=== PATIENT | male | born 1975 | race Caucasian/White ===

== ENCOUNTER 2016-12-05 11:25 | Emergency (ER) | payer OTHER ==
[~2016-12-05] VITALS: Ht 182.9 cm; Wt 115.0 kg
[2016-12-05 11:29] VITALS: TEMP 36.5; Ht 182.9 cm; Wt 115.0 kg
[2016-12-05] MEDS ORDERED: MTR800 PO (11:42)
[2016-12-05] MEDS ORDERED: GABA-113 PO (11:42)
[2016-12-05] MEDS ORDERED: MoRPHine SULFATE 10 MG/ML CARP/VIAL IV STA (11:51)
[2016-12-05] MEDS ORDERED: ONDANSETRON INJ 2 MG/ML 2 ML VIAL IV STA (11:51)
[2016-12-05] MEDS ORDERED: KETOROLAC TROMETHAMINE 30 MG/ML VIAL IV STA (11:51)
[2016-12-05] MEDS ORDERED: DEXAMETHASONE SOD INJ 10 MG/ML VIAL IV ONE (12:00)
[2016-12-05] MEDS ORDERED: MoRPHine SULFATE 4 MG/ML 1 ML CARP\\VIAL IV STA (13:30)
--- NOTE | 2016-12-05 13:33 | EMERGENCY ROOM VISIT NOTE ---
ED Visit Note First contact with patient: 11:40 CHIEF COMPLAINT: Low back pain with right sciatica HISTORY OF PRESENT ILLNESS: This 41-year-old male presents the ER with chief complaint of worsening low back pain and right sciatica since last evening. The patient states that he just bent over and felt a sharp stabbing pain in his right lower back with pain radiating down to his right foot. The patient also has some numbness in his right leg today. The patient has been under the treatment for low back pain and right sciatica since July. He was treated with steroids in September and October. He had an x-ray done 11/03/2016 which revealed mild degenerative changes. He started doing physical therapy the first week of November. He states that he had to go through some any weeks of physical therapy before his insurance would improve an MRI. The patient was at his family physician today and they sent him to the emergency room due to the pain. The patient has been taking ibuprofen and gabapentin for pain. He states the pain is worse with sitting, and standing still. The patient denies any urinary symptoms of frequency, urgency, dysuria. The patient denies any loss of bowel or bladder control or saddle anesthesia. REVIEW OF SYSTEMS: 6 system review was performed and was negative unless stated otherwise in history of present illness. PMH: The patient is healthy; hypertension SOCIAL HISTORY: Patient lives with his and children. The patient denies any tobacco use but admits to occasional alcohol use PHYSICAL EXAM: Vital Signs normal: Reviewed Nurse's notes and agree. GENERAL: 41-year-old white male appears uncomfortable secondary to back pain. MENTAL STATUS: Alert and oriented 3 LUMBAR SPINE: No gross bony abnormality noted. Patient is nontender to palpation over the spinous processes. He is tender to palpation over the right paravertebral region, left side nontender. He has limited range of motion in all directions secondary to pain. NEURO: Patient is able to heel and toe walk with some difficulty. bilateral patellar and Achilles reflexes are 2+. Sensation is intact to pinprick bilateral lower extremities. Positive straight leg raise on the right. EMERGENCY DEPARTMENT COURSE: The patient was evaluated. IV access was obtained. The patient was given Toradol 30 mg IV, Decadron 10 mg IV, morphine 8 mg IV and Zofran 4 mg IV. The patient was reevaluated and was feeling better but still had significant pain in the right lower back and right upper thigh. He was given additional 4 mg of morphine IV. The patient was reevaluated was feeling better. The patient was discharged home in stable condition with his driving. DIAGNOSIS: Low back pain with right radiculopathy DISCHARGE INSTRUCTIONS AND TREATMENT: Take Medrol dosepak as prescribed. Ibuprofen 600 mg every 6 hours with food for pain. Take OxyIR as needed for more severe pain. Do not drive while taking the OxyIR. Continue gabapentin.. Avoid staying in any one position for an extended period of time. Follow-up with your family physician in 2 days for recheck and possible referral for MRI and appointment with spine surgeon. Off work for 2 days. Current/Historical Medications Scheduled Gabapentin (Neurontin), 300 MG PO TID Ibuprofen (Ibuprofen), 800 MG PO TID Allergies Coded Allergies: No Known Allergies (Unverified , 12/05/16) Vital Signs Date Time Temp Pulse Resp B/P Pulse Ox O2 Delivery O2 Flow Rate FiO2 12/05/16 11:29 36.5 92 18 187/121 96 Room Air Medications Administered Medications (Trade) Dose Ordered Sig/Mitch Route Start Time Stop Time Status Last Admin Dose Admin Ketorolac Tromethamine (Toradol Inj) 30 mg NOW STAT IV 12/05/16 11:51 12/05/16 11:53 DC 12/05/16 12:29 30 MG Dexamethasone Sodium Phosphate (Decadron Inj) 10 mg NOW ONCE IV 12/05/16 12:00 12/05/16 12:01 DC 12/05/16 12:28 10 MG Ondansetron HCl (Zofran Inj) 4 mg NOW STAT IV 12/05/16 11:51 12/05/16 11:53 DC 12/05/16 12:29 4 MG Morphine Sulfate (MoRPHine SULFATE INJ) 8 mg NOW STAT IV 12/05/16 11:51 12/05/16 11:53 DC 12/05/16 12:28 8 MG Departure Information Referrals Scarlett Piña MD (PCP) Patient Instructions [facility]
[2016-12-05] MEDS ORDERED: OXYC1TAB3 PO (13:38)
[2016-12-05] MEDS ORDERED: METH4PAK PO (13:38)
[2016-12-05 14:00] VITALS: BP 158/96; PULSE 100; O2SAT 96
[2017-01-09] MEDS ORDERED: DAYQLIQ PO (08:13)
[2017-01-09] MEDS ORDERED: OXYM0.056 NAE (08:13)
[2017-02-09] MEDS ORDERED: RXC5 PO (12:09)
== END 2016-12-05 14:01 | disposition home or self-care (01) ==
LOC: C.EDB 11:26 → C.EDC 14:01
DX: M54.16 Radiculopathy, lumbar region (principal); I10 Essential (primary) hypertension

== ENCOUNTER → 2016-12-06 | Outpatient (CLI) | payer OTHER ==
[~2016-12-06] MED LIST: DAYQLIQ PO; GABA-113 PO; METH4PAK PO; MTR800 PO; OXYC1TAB3 PO; OXYM0.056 NAE; RXC5 PO
--- NOTE | 2016-12-06 12:33 | DIAGNOSTIC IMAGING REPORT ---
MRI LUMBAR SPINE W/O CONTRAST CLINICAL HISTORY: Low back pain with right leg radiculopathy. TECHNIQUE: Sagittal and axial T1, T2 and STIR images were obtained. COMPARISON STUDY: No previous studies for comparison. 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 L1-2: No disc protrusions or extrusions. No evidence of spinal canal or neural foraminal compromise. L2-3: No disc protrusions or extrusions. No evidence of spinal canal or neural foraminal compromise. L3-4: No disc protrusions or extrusions. No evidence of spinal canal or neural foraminal compromise. L4-5: No disc protrusions or extrusions. No evidence of spinal canal or neural foraminal compromise. L5-S1: There is a moderate right posterior central disc protrusion with an associated 18 mm free disc fragment. This results in significant deformity of the thecal sac and probable impingement of the right S1 nerve root. The conus medullaris and cauda equina appear normal. IMPRESSION: L5-S1 right posterior central disc protrusion with associated 18 mm free disc fragment. This results in significant deformity of the thecal sac and probable impingement of the right S1 nerve root Electronically signed by: Bashir Maddox M.D. 12/06/2016 12:31 PM Dictated Date/Time: 12/06/2016 12:25 PM
== END | disposition home or self-care (01) ==
LOC: C.MRI 10:40
PROVIDERS: ATTEND Family Medicine
DX: M51.17 Intervertebral disc disorders with radiculopathy, lumbosacral region (principal)

== ENCOUNTER → 2016-12-22 | Outpatient (CLI) | payer OTHER ==
[~2016-12-22] MED LIST changes: -METH4PAK PO
[2016-12-22 11:18] LABS: CHOLESTEROL/HDL RATIO 3.8
== END | disposition home or self-care (01) ==
LOC: C.LABBC 08:48
PROVIDERS: ATTEND Family Medicine
DX: Z13.220 Encounter for screening for lipoid disorders (principal); Z13.1 Encounter for screening for diabetes mellitus

== ENCOUNTER 2017-02-09 05:55 | Inpatient (IN) | payer OTHER ==
[2017-01-09 08:14] VITALS: BMI 36.0
--- NOTE | 2017-01-09 08:43 | PAT Medication Instructions ---
Service Date Jan 09, 2017. Current Home Medication List Gabapentin (Neurontin), 600 MG PO TID Oxymetazoline Hcl (Afrin), 2 SPRAYS JOHN QAM [Dayquil], 1 DOSE PO PRN Medication Instructions For Your Scheduled Surgery - Hold the following medications the morning of surgery: [Dayquil], 1 DOSE PO PRN Oxymetazoline Hcl (Afrin), 2 SPRAYS JOHN QAM - Take the following medications the morning of surgery with a sip of water: Gabapentin (Neurontin), 600 MG PO TID - Take the following medications as scheduled the night before surgery: [Dayquil], 1 DOSE PO PRN Gabapentin (Neurontin), 600 MG PO TID If you have any questions please call us at [phone] (Kristie Rios PA-C) or [phone] or [phone]
--- NOTE | 2017-01-09 09:20 | DIAGNOSTIC IMAGING REPORT ---
CHEST PREADMISSION(PA/LAT) CLINICAL HISTORY: Preoperative evaluation. COMPARISON STUDY: No previous studies for comparison. FINDINGS: Lung volumes are normal. Lungs are clear. There is no pneumothorax or pleural effusion. Cardiac size is within normal limits. There is no evidence of pulmonary edema. IMPRESSION: No acute cardiopulmonary findings. Electronically signed by: Alfredo Marion M.D. 01/09/2017 9:19 AM Dictated Date/Time: 01/09/2017 9:18 AM
[2017-01-09 09:39] LABS: BASO % 0.3 %; BASO ABS # 0.02 K/uL (0-0.2); COMPLETE YES; EOS % 2.9 %; IG% 0.3 %; LYMPH % 33.6 %; LYMPH ABS # 2.06 K/uL (1.2-3.4); MEAN CELL VOLUME 87.3 fL (80-100); MEAN CORPUSCULAR HEMOGLOBIN 30.7 pg (25-34); MEAN CORPUSCULAR HGB CONC 35.2 g/dl (32-36); MEAN PLATELET VOLUME 10.1 fL (7.4-10.4); MONO % 12.5 %; NEUT % 50.4 %; PLATELET COUNT 214 K/uL (130-400); RED BLOOD COUNT 5.27 M/uL (4.7-6.1); WHITE BLOOD COUNT 6.14 K/uL (4.8-10.8)
[2017-01-09 09:53] LABS: URINE APPEARANCE CLEAR (CLEAR); URINE BILIRUBIN NEG (NEG); URINE COLOR YELLOW; URINE NITRITE NEG (NEG); URINE SPECIFIC GRAVITY 1.017 (1.000-1.030); UROBILINOGEN NEG (NEG)
[2017-01-09 09:57] LABS: BUN/CREATININE RATIO 16.6 (10-20); CALCIUM 9.3 mg/dl (8.5-10.1); CREATININE 0.93 mg/dl (0.60-1.40); POTASSIUM 4.1 mmol/L (3.5-5.1)
[2017-01-09 10:00] LABS: MANUAL MICROSCOPIC REQUIRED? NO; REVIEW REQ? NO
[2017-02-09] VITALS (11 sets, daily range): BP systolic 123–152; BP diastolic 66–100; PULSE 77–115; TEMP 36.4–37; O2SAT 93–100; Ht 182.9 cm; Wt 120.9 kg
[~2017-02-09] VITALS: Ht 182.9 cm; Wt 120.9 kg
[~2017-02-09 05:55] MED LIST changes: -MTR800 PO; -OXYC1TAB3 PO; -RXC5 PO
[2017-02-09] MEDS ORDERED: LACTATED RINGER'S 1000ML 1,000 ML IV SCH (06:00)
[2017-02-09] MEDS ORDERED: CEFAZOLIN 3000 MG/65 ML D5W 65 ML IV SCH (06:00)
[2017-02-09] MEDS ORDERED: FENTANYL CITRATE INJ 50 MCG/1 ML 2 ML VIAL ONE ×5 (06:51→09:52)
[2017-02-09] MEDS ORDERED: MIDAZOLAM HCL 1 MG/ML 2ML VIAL ONE (06:51)
[2017-02-09] MEDS ORDERED: BACITRACIN 50000 UNIT VIAL ONE (07:08)
[2017-02-09] MEDS ORDERED: BUPIVACAINE/EPINEPHRINE 0.5% MPF 1:200,000 30 ML VIAL ONE (07:08)
[2017-02-09] MEDS ORDERED: SODIUM CHLORIDE 0.9% PF 50 ML VIAL ONE (07:08)
--- NOTE | 2017-02-09 07:18 | History & Physical Bridge Note ---
H&P Re-Evaluation Bridge Note: I have examined the patient, reviewed the History & Physical and in the interval since the performance of the History & Physical I have noted the following changes of clinical significance: No changes noted
--- NOTE | 2017-02-09 07:19 | History and Physical ---
History & Physical Date Feb 09, 2017. Chief Complaint back and leg pain History of Present Illness The patient is a 41 year old male with complaints of Additional History Hepatic Disease: No Endocrine Disorder: No Kidney Disease: No Hypertension: No Heart Disease: No Bleeding Tendencies: No Infectious Diseases: No Allergies Coded Allergies: No Known Allergies (Unverified , 02/09/17) Home Medications Scheduled Gabapentin (Neurontin), 600 MG PO TID Oxymetazoline Hcl (Afrin), 2 SPRAYS JOHN QAM [Dayquil], 1 DOSE PO PRN Physical Examination Skin: warm/dry, no rash Eyes: normal inspection, EOMI, sclerae normal ENT: normal ENT inspection, pharynx normal Head: normocephalic, atraumatic Neck: supple, no adenopathy, trachea midline Respiratory/Chest: lungs clear, normal breath sounds, no respiratory distress Cardiovascular: regular rate, rhythm, no edema, no murmur Abdomen / GI: normal bowel sounds, non tender Back: normal inspection Extremities: normal inspection, normal range of motion Neurologic/Psych: no motor/sensory deficits, alert, normal reflexes, oriented x 3 Diagnosis lumbar stenosis Plan of Treatment decompression fusion L5-S1
[2017-02-09] MEDS ORDERED: HYDROmorphone INJ 2 MG/ML SYR/VIAL ONE ×2 (08:13→09:27)
[2017-02-09] MEDS ORDERED: ONDANSETRON INJ 2 MG/ML 2 ML VIAL IV PRN ×2 (08:30→09:30)
[2017-02-09] MEDS ORDERED: EpHEDrine SULFATE INJ 50 MG/ML AMP IV PRN (08:30)
[2017-02-09] MEDS ORDERED: ATROPINE SULFATE 0.1 MG/ML 5ML SYR IV PRN (08:30)
[2017-02-09] MEDS ORDERED: MoRPHine SULFATE 10 MG/ML CARP/VIAL IV PRN (08:30)
[2017-02-09] MEDS ORDERED: METOPROLOL TARTRATE 1 MG/ML VIAL ONE (08:49)
[2017-02-09] MEDS ORDERED: ROCURONIUM BROMIDE 10 MG/ML 5 ML VIAL ONE (08:49)
[2017-02-09] MEDS ORDERED: ONDANSETRON INJ 2 MG/ML 2 ML VIAL ONE ×2 (08:49→09:29)
[2017-02-09] MEDS ORDERED: LIDOCAINE HCL 2% 2 ML VIAL (20MG/ML) ONE (08:49)
[2017-02-09] MEDS ORDERED: PROPOFOL IV EMULSION 10 MG/ML 20 ML VIAL IV ONE (08:49)
[2017-02-09] MEDS ORDERED: ESMOLOL HCL 10 MG/ML 10 ML VIAL ONE (08:49)
[2017-02-09] MEDS ORDERED: DEXAMETHASONE SOD INJ 4 MG/ML VIAL ONE (08:49)
[2017-02-09] MEDS ORDERED: FLOSEAL HEMOSTATIC MATRIX 10ML TOP ONE (09:16)
[2017-02-09] MEDS ORDERED: SODIUM CHLORIDE 0.9% 1000ML 1,000 ML IV SCH (09:19)
--- NOTE | 2017-02-09 09:19 | [facility] Post Operative Brief Note ---
Immediate Operative Summary Operative Date Feb 09, 2017. Pre-Operative Diagnosis Lumbar Stenosis Post-Operative Diagnosis Lumbar Stenosis Procedure(s) Performed L5-S1 Lumbar Decompression, Posterior Instrumented Fusion, Interbody Fusion with Application of Interbody Cage, Use of Fibrinet Surgeon Bach Drug And Alcohol Counsellor Surgeon(s) Porfirio Sweeney PA-C Estimated Blood Loss 250 Findings hnp/stenosis Specimens None per surgeon
[2017-02-09] MEDS ORDERED: NEOSTIGMINE METHYLSULFATE 1 MG/ML 10ML VIAL ONE (09:29)
[2017-02-09] MEDS ORDERED: GLYCOPYRROLATE INJ 0.2 MG/ML VIAL ONE (09:29)
[2017-02-09] MEDS ORDERED: PHENYLEPHRINE 100MCG/ML 5ML SYR ONE (09:29)
[2017-02-09] MEDS ORDERED: KETOROLAC TROMETHAMINE 30 MG/ML VIAL ONE (09:29)
--- NOTE | 2017-02-09 09:29 | DIAGNOSTIC IMAGING REPORT ---
LUMBAR SPINE 2 OR 3 VIEW CLINICAL HISTORY: L5-S1 Decompression/Fusion COMPARISON STUDY: MRI of the lumbar spine December 06, 2016. Fluoroscopy time: 22 seconds. FINDINGS: 2 fluoroscopic images demonstrate an L5-S1 discectomy with interbody spacer placement. There is a posterior decompression with bilateral pedicle screws at the L5 and S1 levels. IMPRESSION: Fluoroscopic images demonstrating an L5-S1 discectomy and bilateral pedicle screw fusion. Electronically signed by: Alfredo Marion M.D. 02/09/2017 9:27 AM Dictated Date/Time: 02/09/2017 9:21 AM
[2017-02-09] MEDS ORDERED: ACETAMINOPHEN IV 100 ML IV PRN (09:30)
[2017-02-09] MEDS ORDERED: PROMETHAZINE HCL INJ 12.5 MG in SODIUM CHLORIDE 0.9% 50ML 50 ML IV PRN (09:30)
[2017-02-09] MEDS ORDERED: BISACODYL 10 MG SUPP PR PRN (09:30)
[2017-02-09] MEDS ORDERED: DO NOT ADMINISTER FLU VACCINE PRN ×3 (09:30)
[2017-02-09] MEDS ORDERED: FAMOTIDINE 20 MG TAB PO PRN (09:30)
[2017-02-09] MEDS ORDERED: hydrOXYzine HCL 25 MG TAB PO PRN (09:30)
[2017-02-09] MEDS ORDERED: DO NOT ADMINISTER PNEUMOCOCCAL VACCINE PRN ×2 (09:30)
[2017-02-09] MEDS ORDERED: LORAZEPAM INJ 0.5 MG in SYRINGE 0 ML IV PRN (09:30)
[2017-02-09] MEDS ORDERED: SOD PHOSPHATE/SOD BIPHOSPHATE ENEMA 132 ML BTL PR PRN (09:30)
[2017-02-09] MEDS ORDERED: METOCLOPRAMIDE HCL INJ 5 MG/ML 2 ML VIAL IV PRN (09:30)
[2017-02-09] MEDS ORDERED: LORAZEPAM 0.5 MG TAB PO PRN (09:30)
[2017-02-09] MEDS ORDERED: MAGNESIUM HYDROXIDE SUSP 30 ML UDC PO PRN (09:30)
[2017-02-09] MEDS ORDERED: ACETAMINOPHEN 500 MG TAB PO PRN (09:30)
[2017-02-09] MEDS ORDERED: ALUMINUM/MAGNESIUM SUSP 30 ML UDC PO PRN (09:30)
[2017-02-09] MEDS ORDERED: NALOXONE HCL 0.4 MG/1 ML VIAL/CARP IV PRN ×2 (09:30)
[2017-02-09] MEDS: FENTANYL CITRATE INJ 50 MCG/1 ML 2 ML VIAL IV PRN ×4 (09:50→10:05)
[2017-02-09] MEDS ORDERED: HYDROmorphone HCL 0.5MG/ML 50 ML CASSETTE ONE (09:57)
[2017-02-09] MEDS: HYDROmorphone HCL 0.5MG/ML 50 ML CASSETTE IV PRN ×3 (10:35→22:51)
--- NOTE | 2017-02-09 11:06 | OPERATIVE REPORT ---
DATE OF OPERATION: 02/09/2017 PREOPERATIVE DIAGNOSIS: Spinal stenosis, herniated nucleus pulposus. POSTOPERATIVE DIAGNOSIS: Same. PROCEDURES PERFORMED: 1. Lumbar decompression, medial facetectomy and foraminotomy L5-S1. 2. Posterior spinal fusion L5-S1. 3. Placement of posterior instrumentation using Orthros rods and screws, L5-S1. 4. Interbody fusion L5-S1. 5. Placement of PEEK cage 14 x 26 at L5-S1. 6. Placement of locally harvested morcellized autograft in posterior gutters. 7. Placement of FiberNet and OsteoStrux in the interbody space and posterior gutters. SURGEON: Dr. Godfrey Bach. PSYCHOLOGY LECTURER: Sean Sweeney PA-C. Due to the complex nature of the procedure, the entire surgery was performed with the operational assistance of ROXANNE Grande. The biology laboratory assistant, under direct supervision, was involved in the actual performance of all aspects of the surgical procedure including hemostasis, tissue retraction and incision, instrument management, patient positioning, and wound closure. ANESTHESIA: General. DISPOSITION: The patient awakened and taken to PACU in stable condition. HISTORY OF PATIENT'S PROBLEMS: This is a 41-year-old male that presents with above-mentioned diagnosis. After failing an extensive course of nonoperative care, elected to undergo the above-mentioned procedure. Risks, benefits, pros, cons, and alternatives were outlined in detail preoperatively. PROCEDURE IN DETAIL: The patient was met with preoperatively, the case discussed and all questions were addressed. At that point, the patient was taken back to operative suite and after undergoing successful general intubation by the department of anesthesia was placed in prone position on Roscoe table atop the Corwin frame. All bony prominences were well padded and the eyes were inspected to ensure there was no external pressure placed upon them. At this point, lumbar spine was prepped and draped in normal sterile fashion. Sharp dissection with the assistance of Bovie cautery performed down to and exposing the lamina and transverse processes of L5 and sacral ala bilaterally. From a caudal to cephalad fashion, complete laminectomy of L5 was performed, addressing severe lateral recess foraminal disease, particularly on the right. Pedicle screws were then placed in L5-S1 bilaterally with the assistance of fluoroscopy and appropriate sized lia provisionally placed. Through a transforaminal approach on the right, a complete discectomy of L5-S1 was performed, endplates curetted to subcortical bleeding bone and a 14 x 26 mm PEEK cage filled with FiberNet and OsteoStrux tapped into position. The rods were then compressed, locked into final position bilaterally. Transverse processes of L5 and the sacral ala were burred to subcortical bleeding bone. FiberNet, OsteoStrux and locally harvested morcellized autograft was placed in the posterior gutters. A 7 flat RUTH drain inserted. Incision was closed with 1-0 Vicryl in the fascia, 2-0 Vicryl subcutaneously, 4-0 Monocryl for final skin closure. Steri-Strips and sterile dressing placed. The patient was awakened and taken to PACU in stable condition. I attest to the content of the Intraoperative Record and any orders documented therein. Any exceptio ns are noted below.
[2017-02-09] MEDS: LACTATED RINGER'S 1000ML 1,000 ML IV SCH ×2 (11:26→17:54)
[2017-02-09] MEDS ORDERED: RXC5 PO (12:09)
--- NOTE | 2017-02-09 12:10 | Discharge Instructions ---
Discharge Instructions Date of Service Feb 09, 2017. Admission Reason for Admission: Lumbar Spinal Stenosis Discharge Discharge Diagnosis / Problem: lumbar stenosis Discharge Goals Goal(s): Improve function Activity Recommendations Activity Limitations: per Instructions/Follow-up section ACTIVITY RECOMMENDATIONS: SELF CARE INSTRUCTIONS AFTER THORACIC/LUMBAR FUSIONS 1. You may walk to your tolerance. It is good exercise for your legs and back. Expect some back and intermittent leg aches and pains. 2. You may perform "counter-top" level activities (make a sandwich, ruth with a project, etc.). 3. No bending or lifting of more than 10 pounds or back twisting of any nature (roll like a log when turning in bed). 4. You may ride in a car for 20-30 minutes at a time. No driving until after your first visit with your doctor. 5. Frequent changes of position and restricting sitting to 30 minutes at a time will help limit the amount of back spasms and stiffness you may experience. 6. You may discontinue the use of ambulatory aids (cane, crutches, etc.) once your strength and confidence allow. 7. You may metal inspector the shower and let water strike your incision when you arrive home at least once daily. Do not take a tub bath, sit in a hot tub or go into a swimming pool until after your first recheck in the office. SPECIAL CARE INSTRUCTIONS: VERY IMPORTANT TO READ AND REVIEW A. Your surgical incision has been closed with a cosmetic suture under the skin that will dissolve in about 6 weeks. In 14 days, you can use a pair of clean scissors and cut the suture that is left outside of the skin at the ends of your incision. 1. The small skin tapes can be removed 7 days after surgery if they have not fallen off by that point. 2. You may keep the wound open to air as much as possible to promote healing after post-op day number 5 unless told otherwise by your doctor. 3. If you think the wound looks like it is becoming infected (redness or worsening drainage) and/or you are experiencing fever, chill or worsening back pain and muscle spasms, contact the office so that we may evaluate you as soon as possible. B. Complications are uncommon, but please contact us if you have any signs or symptoms of: 1. wound infection (fever higher than 102.5 degrees F, redness, separation of wound, drainage, or increasing pain from the incision) 2. blood clots in legs (pain, swelling, redness and warmth in legs) 3. urinary tract infection (fever higher than 102.5 degrees F, burning upon urination or increased frequency of urination) 4. nerve problems (inability to walk on your toes or heels, numbness, loss of bowel or bladder control) 5. any other symptoms that concern you C. Please call the office at if you have any concerns or questions about your operation or recovery. D. No smoking! Smoking drastically decreases the chance of a solid fusion. E. Do not take any anti-inflammatory medications (Indocin, Advil, Motrin, Aspirin, Naprosyn, etc.) as these may inhibit the chance of a solid fusion. Tylenol is okay to take for pain. MANAGING PAIN AFTER SPINAL SURGERY 1. Narcotic medication is intended for short-term use and will be provided for surgical pain. Surgical pain usually lasts for a period of 4-6 weeks. Narcotic medication includes Percocet, Vicodin, Darvocet, Tylenol #3 or Lortab. 2. Longer-term pain is more appropriately treated with non-narcotic medication such as Tylenol ES. 3. Muscle spasm is not appropriately treated with narcotics. Muscle relaxers such as Soma, Flexeril or Skelaxin can be used along with Tylenol ES. 4. Remember that we all live with some "aches and pains". This is not unusual or uncommon after an injury or as we get older. a. Back pain is expected and may include muscle spasms for 4 to 6 weeks after surgery. The pain should gradually improve. If the pain worsens for no apparent reason, please contact the office. b. Intermittent leg pain may also be experienced and should not be concerned about unless it worsens for no apparent reason. If so, please contact the office. 5. We will provide appropriate medication within the normal guidelines of their prescribed use. We will also be very cautious and aware of potential abuse and extended duration of patients' medication needs. a. Pain medications are for your comfort and to assist with sleep and rest so that the tissue can heal. They are not provided in order to return to normal activity and should not be used through the day. To do so or worsening pain at night can result from ongoing tissue damage and development of tolerance to the prescribed medicine. 6. Please allow 2-3 days to process refills. Prescriptions will not be mailed but must be picked up at the office. FOLLOW UP VISIT: Keep your scheduled follow-up appointment. Any questions, please call the office at . . Instructions / Follow-Up Instructions / Follow-Up ACTIVITY RECOMMENDATIONS: SELF CARE INSTRUCTIONS AFTER THORACIC/LUMBAR FUSIONS 1. You may walk to your tolerance. It is good exercise for your legs and back. Expect some back and intermittent leg aches and pains. 2. You may perform "counter-top" level activities (make a sandwich, ruth with a project, etc.). 3. No bending or lifting of more than 10 pounds or back twisting of any nature (roll like a log when turning in bed). 4. You may ride in a car for 20-30 minutes at a time. No driving until after your first visit with your doctor. 5. Frequent changes of position and restricting sitting to 30 minutes at a time will help limit the amount of back spasms and stiffness you may experience. 6. You may discontinue the use of ambulatory aids (cane, crutches, etc.) once your strength and confidence allow. 7. You may metal inspector the shower and let water strike your incision when you arrive home at least once daily. Do not take a tub bath, sit in a hot tub or go into a swimming pool until after your first recheck in the office. SPECIAL CARE INSTRUCTIONS: VERY IMPORTANT TO READ AND REVIEW A. Your surgical incision has been closed with a cosmetic suture under the skin that will dissolve in about 6 weeks. In 14 days, you can use a pair of clean scissors and cut the suture that is left outside of the skin at the ends of your incision. 1. The small skin tapes can be removed 7 days after surgery if they have not fallen off by that point. 2. You may keep the wound open to air as much as possible to promote healing after post-op day number 5 unless told otherwise by your doctor. 3. If you think the wound looks like it is becoming infected (redness or worsening drainage) and/or you are experiencing fever, chill or worsening back pain and muscle spasms, contact the office so that we may evaluate you as soon as possible. B. Complications are uncommon, but please contact us if you have any signs or symptoms of: 1. wound infection (fever higher than 102.5 degrees F, redness, separation of wound, drainage, or increasing pain from the incision) 2. blood clots in legs (pain, swelling, redness and warmth in legs) 3. urinary tract infection (fever higher than 102.5 degrees F, burning upon urination or increased frequency of urination) 4. nerve problems (inability to walk on your toes or heels, numbness, loss of bowel or bladder control) 5. any other symptoms that concern you C. Please call the office at if you have any concerns or questions about your operation or recovery. D. No smoking! Smoking drastically decreases the chance of a solid fusion. E. Do not take any anti-inflammatory medications (Indocin, Advil, Motrin, Aspirin, Naprosyn, etc.) as these may inhibit the chance of a solid fusion. Tylenol is okay to take for pain. MANAGING PAIN AFTER SPINAL SURGERY 1. Narcotic medication is intended for short-term use and will be provided for surgical pain. Surgical pain usually lasts for a period of 4-6 weeks. Narcotic medication includes Percocet, Vicodin, Darvocet, Tylenol #3 or Lortab. 2. Longer-term pain is more appropriately treated with non-narcotic medication such as Tylenol ES. 3. Muscle spasm is not appropriately treated with narcotics. Muscle relaxers such as Soma, Flexeril or Skelaxin can be used along with Tylenol ES. 4. Remember that we all live with some "aches and pains". This is not unusual or uncommon after an injury or as we get older. a. Back pain is expected and may include muscle spasms for 4 to 6 weeks after surgery. The pain should gradually improve. If the pain worsens for no apparent reason, please contact the office. b. Intermittent leg pain may also be experienced and should not be concerned about unless it worsens for no apparent reason. If so, please contact the office. 5. We will provide appropriate medication within the normal guidelines of their prescribed use. We will also be very cautious and aware of potential abuse and extended duration of patients' medication needs. a. Pain medications are for your comfort and to assist with sleep and rest so that the tissue can heal. They are not provided in order to return to normal activity and should not be used through the day. To do so or worsening pain at night can result from ongoing tissue damage and development of tolerance to the prescribed medicine. 6. Please allow 2-3 days to process refills. Prescriptions will not be mailed but must be picked up at the office. FOLLOW UP VISIT: Keep your scheduled follow-up appointment. Any questions, please call the office at . Current Hospital Diet Patient's current hospital diet: Regular Diet Discharge Diet Recommended Diet: Regular Diet Procedures Procedures Performed: L5-S1 Lumbar Decompression, Posterior Instrumented Fusion, Interbody Fusion with Application of Interbody Cage, Use of Fibrinet Pending Studies Studies pending at discharge: no Laboratory Results Lipid Panel Test 12/22/16 09:09 Range/Units Triglycerides Level 125 0-150 mg/dl Cholesterol Level 215 H 0-200 mg/dl HDL Cholesterol 57 mg/dl Cholesterol/HDL Ratio 3.8 LDL Cholesterol, Calculated 133 mg/dl Medical Emergencies . Who to Call and When: Medical Emergencies: If at any time you feel your situation is an emergency, please call 911 immediately. . Non-Emergent Contact Non-Emergency issues call your: Primary Care Provider . "Provider Documentation" section prepared by Godfrey Bach. VTE Core Measure Inpt VTE Proph given/why not?: Elizabeth Peña, SCD's
[2017-02-09] MEDS ORDERED: NURSING DECISION MEDICATION ORDER SCH (12:15)
[2017-02-09] MEDS ORDERED: COUGH DROP (SUGAR FREE) LOZ 24 LOZ/1 BOX PO PRN (13:00)
[2017-02-09] MEDS: GABAPENTIN 600 MG TAB PO SCH ×2 (13:28→20:56)
--- NOTE | 2017-02-09 13:57 | Anesthesiology Progress Note ---
Anesthesia Post Op Note Date & Time Feb 09, 2017 at 13:56 Vital Signs Pain Intensity: 4.0 Vital Signs Past 12 Hours Date Time Temp Pulse Resp B/P Pulse Ox O2 Delivery O2 Flow Rate FiO2 02/09/17 13:38 36.5 93 17 128/76 93 Room Air 02/09/17 12:35 36.4 77 16 123/75 99 Nasal Cannula 4.0 02/09/17 11:35 37.0 93 18 127/66 99 Nasal Cannula 3.0 02/09/17 11:05 36.4 88 16 129/87 99 Nasal Cannula 4.0 02/09/17 10:35 36.8 77 16 130/76 100 Nasal Cannula 4.0 02/09/17 10:35 100 Nasal Cannula 4.0 02/09/17 10:35 100 Nasal Cannula 4.0 02/09/17 10:15 36.6 90 16 133/72 100 Nasal Cannula 4 02/09/17 10:10 90 14 138/75 100 Nasal Cannula 4 02/09/17 10:00 81 14 128/61 100 Mask 10 02/09/17 09:50 82 14 123/84 100 Mask 10 02/09/17 09:41 36.6 97 16 141/78 100 Mask 10 02/09/17 06:17 36.5 99 18 152/100 96 Room Air Notes Mental Status: alert / awake / arousable, participated in evaluation Pt Amnestic to Procedure: Yes Nausea / Vomiting: adequately controlled Pain: adequately controlled Airway Patency, RR, SpO2: stable & adequate BP & HR: stable & adequate Hydration State: stable & adequate Anesthetic Complications: no major complications apparent
[2017-02-09] MEDS: CEFAZOLIN IV 3,000 MG in DEXTROSE 5% 50ML 50 ML IV SCH (15:25)
[2017-02-09] MEDS: DEXAMETHASONE INJ 6 MG in SYRINGE 0 ML IV SCH (17:54)
[2017-02-09] MEDS: DOCUSATE SODIUM/SENNA 50/8.6MG TAB PO SCH (20:56)
[2017-02-10] MEDS: CEFAZOLIN IV 3,000 MG in DEXTROSE 5% 50ML 50 ML IV SCH (00:17)
[2017-02-10] MEDS: LACTATED RINGER'S 1000ML 1,000 ML IV SCH (00:17)
[2017-02-10] MEDS: DEXAMETHASONE INJ 6 MG in SYRINGE 0 ML IV SCH ×2 (00:17→08:59)
[2017-02-10 03:25] VITALS: BP 137/74; PULSE 107; TEMP 36.5; O2SAT 98
[2017-02-10 05:36] LABS: BASO % 0.1 %; BASO ABS # 0.01 K/uL (0-0.2); COMPLETE YES; HEMATOCRIT 35.8 % (42-52); IG% 0.3 %; LYMPH % 9.9 %; LYMPH ABS # 1.06 K/uL (1.2-3.4); MEAN CELL VOLUME 86.5 fL (80-100); MEAN CORPUSCULAR HEMOGLOBIN 30.4 pg (25-34); MEAN CORPUSCULAR HGB CONC 35.2 g/dl (32-36); MONO % 5.4 %; NEUT % 84.3 %; PLATELET COUNT 187 K/uL (130-400); RED BLOOD COUNT 4.14 M/uL (4.7-6.1); WHITE BLOOD COUNT 10.67 K/uL (4.8-10.8)
[2017-02-10] MEDS ORDERED: DC PCA PRN (06:00)
[2017-02-10] MEDS ORDERED: HYDROmorphone INJ 0.5 MG/0.5 ML SYR IV PRN ×2 (06:01)
[2017-02-10] MEDS ORDERED: HYDROmorphone INJ 1 MG/ML SYR IV PRN (06:01)
[2017-02-10 06:17] LABS: BUN/CREATININE RATIO 15.3 (10-20); CALCIUM 8.5 mg/dl (8.5-10.1); CREATININE 1.1 mg/dl (0.60-1.40); POTASSIUM 4.4 mmol/L (3.5-5.1)
[2017-02-10] MEDS ORDERED: NURSING VERBAL MED ORDER ONE (07:00)
[2017-02-10 07:25] VITALS: BP 147/79; PULSE 107; TEMP 36.5; O2SAT 95
[2017-02-10] MEDS: OXYCODONE HCL IR 5 MG TAB (IMMEDIATE RELEASE) PO PRN ×4 (07:47→21:57)
[2017-02-10] MEDS: OXYMETAZOLINE HCL 0.05% NA SPR 15 ML BTL NAE SCH (08:58)
[2017-02-10] MEDS: GABAPENTIN 600 MG TAB PO SCH ×3 (08:59→20:35)
--- NOTE | 2017-02-10 10:38 | PROGRESS NOTE ---
DATE: 02/10/2017 SUBJECTIVE: Postop day #1. Back pain is controlled. Leg pain markedly improved. Vital signs stable. T-max 36.5. RUTH drained 35 mL. Hematocrit 35.8. On exam, patient is in chair at bedside. Demonstrates good strength to testing and is comfortable. ASSESSMENT: Status post lumbar decompression and fusion. PLAN: At this time, will initiate physical therapy, advance his bowel regimen. Assess his progress Sunday, possibly discharge home Sunday or Sunday.
[2017-02-10 11:35] VITALS: BP 134/83; PULSE 82; TEMP 36.5; O2SAT 95
[2017-02-10 15:57] VITALS: BP 124/76; PULSE 91; TEMP 36.5; O2SAT 96
[2017-02-10 16:00] VITALS: O2SAT 96
[2017-02-10] MEDS: DOCUSATE SODIUM/SENNA 50/8.6MG TAB PO SCH (20:34)
[2017-02-10] MEDS: KETOROLAC TROMETHAMINE 30 MG/ML VIAL IV PRN (20:42)
[2017-02-11 00:05] VITALS: BP 142/74; PULSE 80; TEMP 36.6; O2SAT 95
[2017-02-11] MEDS: POLYETHYLENE (MIRALAX) 17 GM PACK PO SCH ×3 (06:03→17:36)
[2017-02-11] MEDS: OXYCODONE HCL IR 5 MG TAB (IMMEDIATE RELEASE) PO PRN ×4 (06:17→20:46)
[2017-02-11 07:32] VITALS: BP 140/85; PULSE 81; TEMP 36.8; O2SAT 96
[2017-02-11 07:45] VITALS: O2SAT 96
[2017-02-11] MEDS: OXYMETAZOLINE HCL 0.05% NA SPR 15 ML BTL NAE SCH (08:36)
[2017-02-11] MEDS: GABAPENTIN 600 MG TAB PO SCH ×3 (08:37→20:04)
--- NOTE | 2017-02-11 10:16 | PROGRESS NOTE ---
DATE: 02/11/2017 SUBJECTIVE: Postop day #2. Back pain controlled. Leg pain markedly improved. Vital signs stable. T-max 36.8. RUTH drained 20 mL last shift. On exam, patient has good strength to testing, appears comfortable. ASSESSMENT: Status post lumbar decompression and fusion. PLAN: At this time, will continue physical therapy today, advance his bowel regimen and anticipate home tomorrow.
[2017-02-11 15:24] VITALS: BP 131/78; PULSE 86; TEMP 36.9; O2SAT 98
[2017-02-11 16:00] VITALS: O2SAT 98
[2017-02-11] MEDS: KETOROLAC TROMETHAMINE 30 MG/ML VIAL IV PRN (19:14)
[2017-02-11] MEDS: DOCUSATE SODIUM/SENNA 50/8.6MG TAB PO SCH (20:04)
[2017-02-11] MEDS ORDERED: NURSING VERBAL MED ORDER ONE (23:15)
[2017-02-11 23:35] VITALS: BP 129/74; PULSE 98; TEMP 36.7; O2SAT 99
[2017-02-12] MEDS: OXYCODONE HCL IR 5 MG TAB (IMMEDIATE RELEASE) PO PRN ×3 (00:59→11:25)
[2017-02-12 06:56] VITALS: BP 125/80; PULSE 80; TEMP 36.6; O2SAT 97
[2017-02-12] MEDS: GABAPENTIN 600 MG TAB PO SCH (07:36)
[2017-02-12] MEDS: OXYMETAZOLINE HCL 0.05% NA SPR 15 ML BTL NAE SCH (07:38)
--- NOTE | 2017-02-12 08:31 | Anesthesiology Progress Note ---
Anesthesia Post Op Note Date & Time Feb 12, 2017 at 08:31 Vital Signs Pain Intensity: 7.0 Vital Signs Past 12 Hours Date Time Temp Pulse Resp B/P Pulse Ox O2 Delivery O2 Flow Rate FiO2 02/12/17 06:56 36.6 80 16 125/80 97 Room Air 02/11/17 23:55 Room Air 02/11/17 23:35 36.7 98 18 129/74 99 Room Air Notes Mental Status: alert / awake / arousable, participated in evaluation Pt Amnestic to Procedure: Yes Nausea / Vomiting: adequately controlled Pain: adequately controlled Airway Patency, RR, SpO2: stable & adequate BP & HR: stable & adequate Hydration State: stable & adequate Anesthetic Complications: no major complications apparent
[2017-02-12 10:23] VITALS: BP 125/80; PULSE 80; TEMP 36.6; O2SAT 97
--- NOTE | 2017-02-12 15:33 | DISCHARGE SUMMARY ---
PRINCIPAL DIAGNOSIS: Spinal stenosis. HOSPITAL COURSE FOLLOWS: On February 09, the patient underwent lumbar decompression and fusion, tolerated this well and taken to the orthopedic floor postoperatively. Postop day #1, he was up and ambulatory, progressed through postop day #2. On postop day #3, pain was well controlled, bowels were working appropriately and subsequently discharged home. Discharge orders and instructions found on the chart for further review.
== END 2017-02-12 11:29 | disposition home or self-care (01) | DRG 460 ==
LOC: ENRESERVDT → ENRESERVTM → C.ACU 05:55 → C.3E 07:00
PROVIDERS: ADMIT Orthopaedic Surgery Orthopaedic Surgery of the Spine; ATTEND Orthopaedic Surgery Orthopaedic Surgery of the Spine
PROC: 0SG30AJ Fusion of Lumbosacral Joint with Interbody Fusion Device, Posterior Approach, Anterior Column, Open Approach (ICD-10-PCS; principal; 2017-02-09 07:45)
PROC: 0ST40ZZ Resection of Lumbosacral Disc, Open Approach (ICD-10-PCS; principal; 2017-02-09 07:45)
PROC: 0SG3071 Fusion of Lumbosacral Joint with Autologous Tissue Substitute, Posterior Approach, Posterior Column, Open Approach (ICD-10-PCS; principal; 2017-02-09 07:45)
DX: M48.06 Spinal stenosis, lumbar region (principal); M51.26 Other intervertebral disc displacement, lumbar region; E66.9 Obesity, unspecified; Z68.36 Body mass index [BMI] 36.0-36.9, adult; Z87.891 Personal history of nicotine dependence; Z79.899 Other long term (current) drug therapy

== ENCOUNTER 2017-05-18 11:37 | Emergency (ER) | payer OTHER ==
[~2017-05-18] VITALS: Ht 182.9 cm; Wt 125.6 kg
[~2017-05-18 11:37] MED LIST changes: +RXC5 PO
[2017-05-18 11:41] VITALS: Ht 182.9 cm; Wt 125.6 kg
[2017-05-18] MEDS ORDERED: MoRPHine SULFATE 10 MG/ML CARP/VIAL IV STA ×2 (12:00→12:41)
[2017-05-18] MEDS ORDERED: SODIUM CHLORIDE 0.9% 1000ML 1,000 ML IV STA (12:00)
[2017-05-18] MEDS ORDERED: OPTIRAY 320 IV PRN (12:15)
[2017-05-18 12:49] LABS: BASO % 0.3 %; BASO ABS # 0.02 K/uL (0-0.2); COMPLETE YES; EOS % 1.9 %; HEMATOCRIT 47.7 % (42-52); IG% 0.3 %; LYMPH % 33.4 %; LYMPH ABS # 2.64 K/uL (1.2-3.4); MEAN CELL VOLUME 88.7 fL (80-100); MEAN PLATELET VOLUME 10.3 fL (7.4-10.4); MONO % 6.7 %; NEUT % 57.4 %; PLATELET COUNT 241 K/uL (130-400); RED BLOOD COUNT 5.38 M/uL (4.7-6.1)
[2017-05-18 13:01] LABS: URINE APPEARANCE CLEAR (CLEAR); URINE BILIRUBIN NEG (NEG); URINE COLOR YELLOW; URINE NITRITE NEG (NEG); URINE SPECIFIC GRAVITY 1.011 (1.000-1.030); UROBILINOGEN NEG (NEG)
[2017-05-18 13:13] LABS: MANUAL MICROSCOPIC REQUIRED? NO; REVIEW REQ? NO
--- NOTE | 2017-05-18 13:16 | DIAGNOSTIC IMAGING REPORT ---
APPENDICEAL ULTRASOUND CLINICAL HISTORY: Right lower quadrant abdominal pain COMPARISON STUDY: No previous studies for comparison. FINDINGS: The study was difficult from a technical standpoint due to the patient's body habitus. The appendix was nonvisualized. There are no abnormal fluid collections. IMPRESSION: Nonvisualization of the appendix. This examination is therefore nondiagnostic in regards to acute appendicitis. Electronically signed by: Basihr Maddox M.D. 05/18/2017 1:15 PM Dictated Date/Time: 05/18/2017 1:14 PM
[2017-05-18 13:31] LABS: BUN/CREATININE RATIO 9.7 (10-20); CALCIUM 9.9 mg/dl (8.5-10.1); CREATININE 0.99 mg/dl (0.60-1.40)
[2017-05-18 13:37] LABS: POTASSIUM 4.4 mmol/L (3.5-5.1)
--- NOTE | 2017-05-18 13:43 | EMERGENCY ROOM VISIT NOTE ---
History First contact with patient: 11:50 Chief Complaint: ABDOMINAL PAIN Stated Complaint: ABDOMINAL PAIN Nursing Triage Summary: pt c/o mid abd pain started sunday. denies any n/v/d. reports having pain in lower back pt reports he has been recovering from back surgery had end of january pt reports increased bm's today History of Present Illness The patient is a 42 year old male who presents to the Emergency Room with complaints of mid abdominal pain for the past 2 days. Patient reports the pain centers around his umbilicus and radiates slightly up into the right. Pain initially was intermittent and dull, it has been more severe and constant since last night, aching, 04/21. He states he has been having increased bowel movements for the past 2 days as well, but they have been formed, he denies diarrhea, nausea or vomiting, fevers chills, blood in his stool, or urinary symptoms. He took Pepcid and Gas X today without relief. He states he has had a normal appetite and denies any unusual or undercooked foods. Review of Systems A complete 10 point review of systems was reviewed with the patient with pertinent positives and negatives as per history of present illness. All else were negative. Past Medical/Surgical History Medical Problems: (1) Lumbar stenosis with neurogenic claudication Social History Smoking Status: Current Every Day Smoker Current/Historical Medications No Active Prescriptions or Reported Meds Allergies Coded Allergies: No Known Allergies (Unverified , 05/18/17) Physical Exam Vital Signs Date Time Temp Pulse Resp B/P (MAP) Pulse Ox O2 Delivery O2 Flow Rate FiO2 05/18/17 16:12 36.6 78 20 145/95 97 05/18/17 16:02 78 97 05/18/17 16:01 145/95 05/18/17 15:57 79 97 05/18/17 15:52 67 96 05/18/17 15:47 67 96 05/18/17 15:42 67 96 05/18/17 15:37 67 94 05/18/17 15:32 65 95 05/18/17 15:31 137/93 05/18/17 15:27 70 96 05/18/17 15:22 78 96 05/18/17 15:17 77 97 05/18/17 15:15 148/93 05/18/17 15:15 72 20 148/93 96 Room Air 05/18/17 14:52 64 19 97 05/18/17 14:47 68 97 05/18/17 14:42 91 15 98 05/18/17 14:37 70 17 97 05/18/17 14:32 70 17 98 05/18/17 14:31 155/102 05/18/17 14:27 67 13 98 05/18/17 14:22 84 14 96 05/18/17 14:17 68 20 97 05/18/17 13:45 152/96 05/18/17 13:44 151/103 05/18/17 13:43 71 18 151/103 98 Room Air 05/18/17 13:42 79 17 97 05/18/17 13:37 64 20 98 05/18/17 13:32 64 19 98 05/18/17 13:31 168/104 05/18/17 13:27 65 12 97 05/18/17 13:22 77 17 98 05/18/17 13:21 177/105 05/18/17 12:46 86 16 157/98 98 Room Air 05/18/17 12:44 157/98 05/18/17 12:42 74 26 97 05/18/17 12:37 70 24 97 05/18/17 12:32 73 22 96 05/18/17 12:31 160/103 05/18/17 12:27 82 25 97 05/18/17 12:22 83 30 96 05/18/17 12:17 73 05/18/17 12:17 73 29 95 05/18/17 12:12 165/105 05/18/17 11:41 36.6 84 20 169/106 97 Room Air Physical Exam CONSTITUTIONAL: No acute distress. Well appearing and well nourished. Alert and oriented X 4 with normal affect. HEENT: Normocephalic, atraumatic. Pupils equal, round and reactive to light, EOMI. TMs normal. Pharynx normal. Moist mucus membranes. NECK: Supple, full active range of motion without discomfort. RESPIRATORY: Clear to auscultation bilaterally with no wheezing, crackles, rhonchi or stridor. Equal expansion bilaterally. CARDIOVASCULAR: Regular rate and rhythm with no murmurs, rubs or gallops. Normal peripheral perfusion. No edema. GASTROINTESTINAL: Tender to palpation over the umbilicus and slightly to the right. No sol's sign, no McBurney's point tenderness or rebound tenderness. There is a palpable small umbilical hernia, soft, easily reduced. No palpable masses. Soft, nondistended. Bowel sounds present in all quadrants. MUSCULOSKELETAL: Full range of motion of all joints without discomfort. INTEGUMENTARY: No rash or other significant dermatologic conditions noted. NEUROLOGIC: Cranial nerves II-XII grossly intact. No focal neurologic deficits noted. Medical Decision & Procedures ER Provider Diagnostic Interpretation: APPENDICEAL ULTRASOUND CLINICAL HISTORY: Right lower quadrant abdominal pain COMPARISON STUDY: No previous studies for comparison. FINDINGS: The study was difficult from a technical standpoint due to the patient's body habitus. The appendix was nonvisualized. There are no abnormal fluid collections. IMPRESSION: Nonvisualization of the appendix. This examination is therefore nondiagnostic in regards to acute appendicitis. ----- [~ rep ct add3]] CT ABD/PELVIS IV AND ORAL CONT CLINICAL HISTORY: Generalized abdominal pain COMPARISON STUDY: None. TECHNIQUE: Following the IV administration of 117 mL of Optiray-320, CT scan of the abdomen and pelvis was performed from the lung bases to the proximal femurs. Images are reviewed in the axial, sagittal, and coronal planes. IV contrast was administered without complication. CT DOSE: 1460.44 mGy.cm FINDINGS: Lower chest: There are mild bibasal atelectatic changes. Liver: There is hepatic steatosis. No focal masses are visualized. Gallbladder: Unremarkable. Spleen: Normal in size and attenuation. Pancreas: Unremarkable. Adrenal glands: Unremarkable. Kidneys: There is a to small to characterize 6 mm hypodensity within the superior aspect of the left kidney, likely representing a cyst. There is no hydronephrosis. Bowel: There are no transition zones indicate bowel obstruction. The appendix appears normal. There is no acute diverticulitis. Peritoneum: There is no intraperitoneal free air or abdominal ascites. There is a small fat-containing left inguinal hernia. There is a small fat-containing umbilical hernia. Vasculature: The abdominal aorta is normal in course and caliber. Adenopathy: None. Pelvic viscera: The bladder, and pelvic viscera are unremarkable. Skeletal structures: There are postsurgical changes of an L5-S1 discectomy and spinal fusion. IMPRESSION: 1. No evidence of bowel obstruction. No evidence of free air 2. Normal appendix. No evidence of acute diverticulitis. 3. Small fat-containing umbilical and left inguinal hernias 4. Hepatic steatosis Laboratory Results 05/18/17 11:55 Red Blood Count 5.38, Mean Corpuscular Volume 88.7, Mean Corpuscular Hemoglobin 31.0, Mean Corpuscular Hemoglobin Concent 35.0, Mean Platelet Volume 10.3, Neutrophils (%) (Auto) 57.4, Lymphocytes (%) (Auto) 33.4, Monocytes (%) (Auto) 6.7, Eosinophils (%) (Auto) 1.9, Basophils (%) (Auto) 0.3, Neutrophils # (Auto) 4.54, Lymphocytes # (Auto) 2.64, Monocytes # (Auto) 0.53, Eosinophils # (Auto) 0.15, Basophils # (Auto) 0.02 05/18/17 11:55 Test 05/18/17 11:55 05/18/17 12:45 White Blood Count 7.90 K/uL (4.8-10.8) Red Blood Count 5.38 M/uL (4.7-6.1) Hemoglobin 16.7 g/dL (14.0-18.0) Hematocrit 47.7 % (42-52) Mean Corpuscular Volume 88.7 fL (80-100) Mean Corpuscular Hemoglobin 31.0 pg (25-34) Mean Corpuscular Hemoglobin Concent 35.0 g/dl (32-36) Platelet Count 241 K/uL (130-400) Mean Platelet Volume 10.3 fL (7.4-10.4) Neutrophils (%) (Auto) 57.4 % Lymphocytes (%) (Auto) 33.4 % Monocytes (%) (Auto) 6.7 % Eosinophils (%) (Auto) 1.9 % Basophils (%) (Auto) 0.3 % Neutrophils # (Auto) 4.54 K/uL (1.4-6.5) Lymphocytes # (Auto) 2.64 K/uL (1.2-3.4) Monocytes # (Auto) 0.53 K/uL (0.11-0.59) Eosinophils # (Auto) 0.15 K/uL (0-0.5) Basophils # (Auto) 0.02 K/uL (0-0.2) RDW Standard Deviation 42.6 fL (36.4-46.3) RDW Coefficient of Variation 13.2 % (11.5-14.5) Immature Granulocyte % (Auto) 0.3 % Immature Granulocyte # (Auto) 0.02 K/uL (0.00-0.02) Anion Gap 10.0 mmol/L (3-11) Est Creatinine Clear Calc Drug Dose 135.8 ml/min Estimated GFR () 110.0 Estimated GFR (Non- 94.9 BUN/Creatinine Ratio 9.7 (10-20) Calcium Level 9.9 mg/dl (8.5-10.1) Total Bilirubin 0.4 mg/dl (0.2-1) Direct Bilirubin 0.1 mg/dl (0-0.2) Aspartate Amino Transf (AST/SGOT) 35 U/L (15-37) Alanine Aminotransferase (ALT/SGPT) 90 U/L (12-78) Alkaline Phosphatase 104 U/L (45-117) Total Protein 8.0 gm/dl (6.4-8.2) Albumin 4.3 gm/dl (3.4-5.0) Lipase 188 U/L (73-393) Urine Color YELLOW Urine Appearance CLEAR (CLEAR) Urine pH 6.0 (4.5-7.5) Urine Specific [place] 1.011 (1.000-1.030) Urine Protein NEG (NEG) Urine Glucose (UA) NEG (NEG) Urine Ketones NEG (NEG) Urine Occult Blood NEG (NEG) Urine Nitrite NEG (NEG) Urine Bilirubin NEG (NEG) Urine Urobilinogen NEG (NEG) Urine Leukocyte Esterase NEG (NEG) Medications Administered Medications (Trade) Dose Ordered Sig/Mitch Route Start Time Stop Time Status Last Admin Dose Admin Sodium Chloride 1,000 ml @ 999 mls/hr Q1H1M STAT IV 05/18/17 12:00 05/18/17 13:00 DC 05/18/17 12:00 999 MLS/HR Morphine Sulfate (MoRPHine SULFATE INJ) 6 mg NOW STAT IV 05/18/17 12:00 05/18/17 12:05 DC 05/18/17 12:17 6 MG Morphine Sulfate (MoRPHine SULFATE INJ) 6 mg NOW STAT IV 05/18/17 12:41 05/18/17 12:42 DC 05/18/17 12:45 6 MG Medical Decision CC: Patient presenting with complaint of abdominal pain Interpretation of Labs: No leukocytosis, no anemia, no significant electrolyte abnormalities, normal renal function, normal liver enzymes and lipase. Urinalysis is unremarkable. Differential Diagnosis: Includes, but not limited to gastroenteritis, gastritis , peptic ulcer disease, appendicitis, small bowel obstruction, strangulated hernia, colitis, diverticulitis, cholecystitis, cholelithiasis, pancreatitis, among others Medication Reconciliation: I attest that I have personally reviewed the patient' s current medication list. Vital signs review: I reviewed the patient's vital signs and interpret them as follows: T: Afebrile; BP: Hypertensive; HR: []; RR: Within normal limits; Pulse Ox: Within normal limits on room air. Blood pressure screening: The patient was found to have an elevated blood pressure and was referred to their primary doctor for recheck and further treatment. Summary: Patient was evaluated at bedside, history of physical exam performed. Patient is alert and in no acute distress. Well appearing. Abdomen is soft and nondistended with normal bowel sounds throughout. Patient has moderate tenderness in the periumbilical region and slightly to the right with palpation. No rebound tenderness, no Sol's or McBurney's point tenderness. There is a small umbilical hernia palpable that is soft and easily reducible. Patient's presentation and lack of associated symptoms seems less likely for appendicitis, but given progressive nature of pain and moderate tenderness to palpation in the periumbilical region, decision was made to perform appendicitis workup. Orders were placed at bedside for labs, UA, ultrasound and CT study to evaluate for appendicitis and other abdominal etiology. Patient discussed with Dr. Suarez, who agrees with my assessment and plan. Patient reassessed multiple times throughout ED stay, he remains well appearing and reports improvement in his pain after morphine and IV fluids. Labs reviewed, unremarkable as above. US was nondiagnostic, therefore CT performed, which is negative for appendicitis or any other acute abdominal abnormality. Patient and were updated on all results and instructed to follow closely with his PCP, as well as return precautions. He verbalized understanding. Impression Primary Impression: Abdominal pain of unknown etiology Departure Information Dispostion Home / Self-Care Condition GOOD Prescriptions No Active Prescriptions or Reported Meds Referrals Scarlett Piña MD (PCP) Patient Instructions [facility] Additional Instructions You have been treated in the Emergency Department your Abdominal Pain. Laboratory results and imaging studies have ruled out any emergent causes for your abdominal pain which would warrant admission or surgery. For pain control, you can use the following [id number] medicines (if >12 yo): - Regular strength (325mg/tab) Tylenol (acetaminophen) 2 tabs every 6 hours as needed. Do not exceed 10 tablets in a 24 hour period. Avoid taking more than 3 grams (3000 mg) of Tylenol per day. This includes any other sources of acetaminophen you may take on a regular basis. - Regular strength (200 mg/tab) Advil (ibuprofen) 1-2 tabs every 4-6 hours as needed. Do not exceed a dose of 3200 mg per day. Drink plenty of water and stay well hydrated. As with any trip to the Emergency Department, you should follow-up with your Primary Care Provider in 2-3 days from today's visit. Return to the emergency department if your symptoms persist despite treatment plan outlined above or if the following symptoms occur: increased fevers, chills , worsening pain, severe nausea/vomiting, blood in your stool or urine.
--- NOTE | 2017-05-18 15:19 | DIAGNOSTIC IMAGING REPORT ---
CT ABD/PELVIS IV AND ORAL CONT CLINICAL HISTORY: Generalized abdominal pain COMPARISON STUDY: None. TECHNIQUE: Following the IV administration of 117 mL of Optiray-320, CT scan of the abdomen and pelvis was performed from the lung bases to the proximal femurs. Images are reviewed in the axial, sagittal, and coronal planes. IV contrast was administered without complication. CT DOSE: 1460.44 mGy.cm FINDINGS: Lower chest: There are mild bibasal atelectatic changes. Liver: There is hepatic steatosis. No focal masses are visualized. Gallbladder: Unremarkable. Spleen: Normal in size and attenuation. Pancreas: Unremarkable. Adrenal glands: Unremarkable. Kidneys: There is a to small to characterize 6 mm hypodensity within the superior aspect of the left kidney, likely representing a cyst. There is no hydronephrosis. Bowel: There are no transition zones indicate bowel obstruction. The appendix appears normal. There is no acute diverticulitis. Peritoneum: There is no intraperitoneal free air or abdominal ascites. There is a small fat-containing left inguinal hernia. There is a small fat-containing umbilical hernia. Vasculature: The abdominal aorta is normal in course and caliber. Adenopathy: None. Pelvic viscera: The bladder, and pelvic viscera are unremarkable. Skeletal structures: There are postsurgical changes of an L5-S1 discectomy and spinal fusion. IMPRESSION: 1. No evidence of bowel obstruction. No evidence of free air 2. Normal appendix. No evidence of acute diverticulitis. 3. Small fat-containing umbilical and left inguinal hernias 4. Hepatic steatosis Electronically signed by: Bashir Maddox M.D. 05/18/2017 3:18 PM Dictated Date/Time: 05/18/2017 3:14 PM
[2017-05-18 16:12] VITALS: BP 145/95; PULSE 78; TEMP 36.6; O2SAT 97
== END 2017-05-18 16:13 | disposition home or self-care (01) ==
LOC: C.EDB 11:38
DX: R10.9 Unspecified abdominal pain (principal); F17.210 Nicotine dependence, cigarettes, uncomplicated